=== PATIENT | female | born 1945 | race Hispanic/Latino ===

== ENCOUNTER 2018-02-12 07:14 | Outpatient (CLI) | payer MEDICARE ==
--- NOTE | 2018-02-12 09:27 | RAD ---
BIPHASIC ESOPHAGRAM: Date: 02/12/18 HISTORY: Dysphagia. FINDINGS: Swallowing is grossly normal. There is unobstructed flow of contrast through the esophagus and into t he stomach. Tertiary contractions are present. There is a moderate sized hiatal hernia with severe sp ontaneous gastroesophageal reflux. No obstructing mass, stricture, or diverticulum is seen. IMPRESSION: 1. Moderate sized hiatal hernia. 2. Gastroesophageal reflux. 3. Presbyesophagus. POS: [facility]
== END 2018-02-12 07:15 | disposition home or self-care (01) ==
LOC: RAD 07:14
PROVIDERS: ATTEND Student in an Organized Health Care Education/Training Program
DX: R13.10 Dysphagia, unspecified (principal); K44.9 Diaphragmatic hernia without obstruction or gangrene; K21.9 Gastro-esophageal reflux disease without esophagitis; K22.8 Other specified diseases of esophagus
CPT/HCPCS: 74220

== ENCOUNTER 2018-07-24 08:23 | Emergency (ER) | payer MEDICAID, MEDICARE ==
--- NOTE | 2018-07-24 09:43 | RAD ---
PA AND LATERAL CHEST: History: Cough. Comparison: 05-07-18 FINDINGS: Heart size is enlarged. There are some pulmonary nodules, one within the right upper lobe and one wit hin the left midlung field with some questionable other areas of nodularity in the right infrahilar r egion. This is similar in appearance to the previous 05-07-18 study. These findings warrant further in vestigation and I would recommend chest CT for assessment. Chronic appearing lung changes are seen. IMPRESSION: 1. Cardiomegaly. 2. Findings suggest bilateral pulmonary nodules that are not definitely calcified. I would recommend further evaluation with CT of the chest for assessment. POS: [facility]
== END 2018-07-24 11:29 | disposition home or self-care (01) ==
LOC: SCSER 08:23
DX: R91.1 Solitary pulmonary nodule (principal); I10 Essential (primary) hypertension; Z79.899 Other long term (current) drug therapy
CPT/HCPCS: 71046; 87804